=== PATIENT | female | born 1990 | race Caucasian/White ===

== ENCOUNTER 2016-03-06 19:46 | Emergency (ER) | payer BC ==
[~2016-03-06] VITALS: Ht 154.9 cm; Wt 54.5 kg
[~2016-03-06 19:46] MED LIST: ADDERALL20 MG PO; CLINDAMYCIN HC300 MG PO; DEPO-PROVER400 MG/ML; NORCO 325 MG-51 TAB PO; ULTRAM 50MG TAB50 MG PO; ocella
[2016-03-06 19:49] VITALS: TEMP 97.8
[2016-03-06 21:39] VITALS: BP 112/77; PULSE 84
== END 2016-03-06 21:40 | disposition home or self-care (01) ==
LOC: COL.ER 19:46
DX: H57.12 Ocular pain, left eye (principal)

== ENCOUNTER 2016-12-16 22:53 | Inpatient (IN) | payer BC ==
[~2016-12-16] VITALS: Ht 154.9 cm; Wt 75.0 kg
[2016-12-16 23:18] VITALS: BP 133/81; PULSE 67
[2016-12-16 23:30] VITALS: BP 133/81; PULSE 67; TEMP 98.1
[2016-12-17] VITALS (33 sets, daily range): BP systolic 100–138; BP diastolic 56–83; PULSE 60–125; TEMP 97.6–98.7
[2016-12-17 00:10] LABS: BASO % 0.2 % (0.0-2.0); EOS # 0.1 (0.0-0.7); EOS % 0.5 % (0-4.0); GRAN % 70.2 % (42.2-75.2); HEMATOCRIT 37.4 % (37.0-47.0); HEMOGLOBIN 13.1 g/dl (12.5-16.0); LYMPH # 2.3 (1.2-3.4); LYMPH % 18.1 % (20.0-51.0); MEAN CELL VOLUME 90 fl (80.0-100.0); MEAN CORPUSCULAR HEMOGLOBIN 32 pg (27.0-31.0); MEAN CORPUSCULAR HGB CONC 35 g/dl (33.0-37.0); MONO # 1.4 (0.1-0.6); MONO % 10.5 % (1.7-9.3); PLATELET COUNT 177 K/mm3 (130-400); RED BLOOD COUNT 4.15 M/mm3 (4.10-5.30); WHITE BLOOD COUNT 12.8 K/mm3 (4.8-10.8)
[2016-12-18 07:47] VITALS: BP 112/71; PULSE 108
[2016-12-18 16:58] VITALS: BP 117/75; PULSE 90
[2016-12-19 10:00] VITALS: BP 115/90; PULSE 77; TEMP 98.4
[2016-12-19] MEDS ORDERED: MOTRIN 600600 MG/TAB PO (12:26)
[2016-12-19] MEDS ORDERED: PERCOCET 325 MG1 TA2 PO (12:26)
== END 2016-12-19 18:00 | disposition home or self-care (01) | DRG 774 ==
LOC: LDRO 22:53 → LDR 23:48 → OB 23:48
PROVIDERS: Obstetrics & Gynecology
PROC: 10E0XZZ Delivery of Products of Conception, External Approach (ICD-10-PCS; principal; 2016-12-17)
PROC: 0KQM0ZZ Repair Perineum Muscle, Open Approach (ICD-10-PCS; 2016-12-17)
PROC: 0HB8XZZ Excision of Buttock Skin, External Approach (ICD-10-PCS; 2016-12-17)
DX: O69.81X0 Labor and delivery complicated by cord around neck, without compression, not applicable or unspecified (principal); O98.32 Other infections with a predominantly sexual mode of transmission complicating childbirth; A63.0 Anogenital (venereal) warts; O70.1 Second degree perineal laceration during delivery; Z3A.39 39 weeks gestation of pregnancy; Z37.0 Single live birth
CPT/HCPCS: J2590; J2795; J7120

== ENCOUNTER 2020-03-19 13:22 | Outpatient (CLI) | payer BC ==
[~2020-03-19] VITALS: Ht 157.5 cm; Wt 79.4 kg
--- NOTE | 2020-03-19 12:10 | NUR ---
Patient ambulatory onto unit with at side with report of decreased movement. Patient states she hasn't felt baby move since last evening. Reports contractions the last few days, but hasn't felt any today. Reports loss of mucous plug, but denies vaginal bleeding or leaking of fluid. EFMs on. VS taken. Will notify for further orders.
--- NOTE | 2020-03-19 12:40 | NUR ---
Discharge instructions and return precautions reviewed with patient and . Ambulatory off of unit at this time.
[~2020-03-19 13:22] MED LIST changes: +MOTRIN 600600 MG/TAB PO; +PERCOCET 325 MG1 TA2 PO; +PRENATAL VITAMI1 TA3 PO; +PROTONIX 40MG T40 MG PO
== END 2020-03-19 13:40 | disposition home or self-care (01) ==
LOC: LDRO 13:22
DX: O36.8130 Decreased fetal movements, third trimester, not applicable or unspecified (principal); Z3A.40 40 weeks gestation of pregnancy

== ENCOUNTER 2020-03-21 06:55 | Inpatient (IN) | payer BC ==
[~2020-03-21] VITALS: Ht 157.5 cm; Wt 79.5 kg
[2020-03-21] VITALS (25 sets, daily range): BP systolic 105–1106; BP diastolic 56–81; PULSE 67–120; TEMP 97.9–98.4
--- NOTE | 2020-03-21 06:55 | NUR ---
0655- Pt arrives on unit ambulatory with , changes into gown, voids. 0657- Pt into bed, EFM and TOCO on and tracing. Assessment completed verbally. Pt requesting epidural. VSS.
--- NOTE | 2020-03-21 07:28 | NUR ---
0728- O2 Sat monitor on and tracing. 0734- KATELYNN Patel at bedside for epidural placement. Pt assisted to sitting on side of bed. FHR not tracing well due to maternal position, tracing maternal HR majority of the time. 0740- Single shot. See anesthesia record. 0746- Pt assisted to semi-fowlers with WL. FHR and TOCo tracing well.
[2020-03-21 07:40] LABS: BASO % 0.2 % (0.0-2.0); EOS # 0.1 (0.0-0.7); EOS % 0.8 % (0-4.0); GRAN # 6.8 (1.4-6.5); GRAN % 70.1 % (42.2-75.2); HEMATOCRIT 35.4 % (37.0-47.0); HEMOGLOBIN 11.8 g/dl (12.5-16.0); LYMPH # 1.7 (1.2-3.4); LYMPH % 17.1 % (20.0-51.0); MEAN CELL VOLUME 89 fl (80.0-100.0); MEAN CORPUSCULAR HEMOGLOBIN 30 pg (27.0-31.0); MEAN CORPUSCULAR HGB CONC 33 g/dl (33.0-37.0); MEAN PLATELET VOLUME 10.1 fl (7.4-10.4); MONO # 1.1 (0.1-0.6); MONO % 11.3 % (1.7-9.3); PLATELET COUNT 201 K/mm3 (130-400); RED BLOOD COUNT 3.96 M/mm3 (4.10-5.30)
--- NOTE | 2020-03-21 08:15 | NUR ---
Report from Jennifer Francois RN and care of patient assumed. Patient resting comfortably with epidural. Reviewed plan of care. Patient denies questions or need. 0820- COVID19 test collected with patient consent and sent to lab.
--- NOTE | 2020-03-21 09:42 | NUR ---
0942-+ Dr. Oakley at bedside, patient reports increased pressure. SVE per provider 2. Patient prepped for delivery and assisted to foot plates. Emery catheter removed prior to pushing. Pericare given. 48- Patient begins pushing with contractions with physician at bedside. Nursery Rn to bedside. 1000- SVE of viable female attended by Dr. Oakley. to mothers abdomen,care of infant to John Rodriguez RN. Apgars 8/9. 0905- Spont delivery of placenta. Pitocin bolu started at 333 ml/hr/protocol. Fundal massage by RN, firm at umbilicus. First degree and left labial lacerations repaired by physician, patient tolerates well. Pericare given and ice pack applied. vaginal bleeding WNL. Patient updated on plan of care and safety reviewed.
--- NOTE | 2020-03-21 15:15 | NUR ---
1515- Pt verbalized that she passed a clot onto her pad. Visualized by this RN to be approximately golf ball sized but flat and elongated. Fundus massaged to firm, no clots expressed and minimal bleeding noted on pad. Encouraged Pt to call out if bleeding increased or more clots noted. Pt verbalized understanding.
[2020-03-22 07:50] VITALS: BP 114/72; PULSE 81; TEMP 98
--- NOTE | 2020-03-22 08:44 | NUR ---
Initial visit attempt; Physician with patient, [employer]ender left card of congratulations for the of patient's daughter and information regarding the availability of spiritual care at our hospital.
[2020-03-22] MEDS ORDERED: IBU600 MG PO (08:46)
[2020-03-22] MEDS ORDERED: PERCOCET 325 MG1 TA2 PO (08:47)
== END 2020-03-22 12:05 | disposition home or self-care (01) | DRG 807 ==
LOC: LDRO 06:55 → LDR 07:04 → OB 07:04
PROVIDERS: Obstetrics & Gynecology; ADMIT Student in an Organized Health Care Education/Training Program
PROC: 10E0XZZ Delivery of Products of Conception, External Approach (ICD-10-PCS; principal; 2020-03-21)
PROC: 10907ZC Drainage of Amniotic Fluid, Therapeutic from Products of Conception, Via Natural or Artificial Opening (ICD-10-PCS; 2020-03-21)
PROC: 0HQ9XZZ Repair Perineum Skin, External Approach (ICD-10-PCS; 2020-03-21)
PROC: 0UQMXZZ Repair Vulva, External Approach (ICD-10-PCS; 2020-03-21)
DX: O99.62 Diseases of the digestive system complicating childbirth (principal); Z37.0 Single live birth; K21.9 Gastro-esophageal reflux disease without esophagitis; O70.0 First degree perineal laceration during delivery; Z3A.39 39 weeks gestation of pregnancy
CPT/HCPCS: J2590; J2795; J7120